=== PATIENT | female | born 1975 | race Caucasian/White ===

== ENCOUNTER 2018-12-21 23:07 | Emergency (ER) | payer OTHER, SELFPAY ==
[2018-12-21 23:09] VITALS: BP 139/87; PULSE 118; RESP 18; TEMP 36.8; O2SAT 100; BMI 24.5
[2018-12-21 23:31] LABS: Bacteria 0 SEEN /hpf (None Seen); Mucous, Urine 0 SEEN /hpf (<or=2+); Red Blood Cells-Urine 0 SEEN /hpf (0-5)
[2018-12-21 23:39] LABS: Color, Urine Straw (Yellow); Glucose, Dipstick Normal (Normal); Ketone-Dipstick Negative (Negative); Leukocyte Esterase-Dipstick Negative /ul (Negative); Nitrite-Dipstick Negative (Negative); Occult Blood-Urine Negative /ul (Negative); Protein-Dipstick Negative (Negative); Specific Gravity, Urine 1.005 (1.002-1.030); Urine Bilirubin Dipstick Negative (Negative); Urine Clarity Clear (Clear); Urine Urobilinogen Normal (Normal)
[2018-12-21 23:46] LABS: Squamous Epithelial Cells - UA 0-5 SEEN /hpf (5-10); White Blood Cells 0-5 SEEN /hpf (0-5)
[2018-12-21 23:47] LABS: Transitional Epithelial - Ur 0-5 SEEN /hpf (0-5)
--- NOTE | 2018-12-21 23:57 | EKG12_ITS ---
Test Reason : WEAKNESS/SYNCOPE Blood Pressure : / mmHG Vent. Rate : 096 BPM Atrial Rate : 096 BPM P-R Int : 166 ms QRS Dur : 092 ms QT Int : 370 ms P-R-T Axes : 031 020 007 degrees QTc Int : 467 ms Normal sinus rhythm Normal ECG Confirmed by NAZARIO STOVER, DIAN ([id number]), state editor CHERY HARMON ([id number]) on 12/24/2018 11:16:23 AM Referred By: KAZ Confirmed By:DIAN LANGE MD
--- NOTE | 2018-12-22 00:01 | RAD_ITS ---
HISTORY: DIZZINESS TODAY, ALSO HAD EPISODE SEVERAL WEEKS PRIOR, TACHYCARDIA EXAM:XR Chest 1 View: COMPARISON: None FINDINGS: EKG leads in place. Normal heart size. Lung volumes appear normal. No vascular congestion, pleural effusion, or acute pulmonary infiltration. No pneumothorax. The bony thorax appears intact. RAD/Chest 1 View (Portable) IMPRESSION: No acute cardiopulmonary disease. at 0037 Reported and signed by: Pollo Manning MD Electronically Signed: Pollo Manning, at 0:36 EDT Tel , Service support ,
--- NOTE | 2018-12-22 00:05 | ED.RN ---
NO OLD EKGS IN MUSE
[2018-12-22] MEDS: 0.9% Normal Saline 1,000 ML 150 ML IV (00:12)
[2018-12-22 01:04] LABS: Absolute Lymphocyte Count 1.47 X10^3/ul (0.83-4.51); Basophil# 0.02 X10^3/uL; Basophil% 0.3 % (0-1); Eosinophil# 0.08 X10^3/uL; Eosinophils% 1.1 % (0-5); Hematocrit 38.3 % (37-47); Hemoglobin 12.3 g/dl (12.0-15.0); Lymphocyte # 1.47 X10^3/ul (4.0); Lymphocyte % 20.6 % (19-41); Mean Corp Hgb Conc 32.1 g/gl (32-36); Mean Corpuscular Hgb 28.3 pg (27.0-32.0); Mean Platelet Vol. 10.3 fl (6.2-12.0); Monocyte# 0.51 X10^3/uL; Monocyte% 7.1 % (0-10); Neutrophil # 5.04 X10^3/uL (2.7-7.7); Neutrophil % 70.6 % (47-70); Platelet Count 201 K/mm3 (150-450); RBC Distribution Width CV 13.4 % (11.6-14.6); RBC Distribution Width SD 42.6 fl (35.1-43.9); Red Blood Count 4.35 M/mm3 (4.2-5.4); White Blood Count 7.1 K/mm3 (4.4-11.0)
[2018-12-22 01:11] LABS: POSITIVE COUNT NO; POSITIVE DIFFERENTIAL NO; POSITIVE MORPHOLOGY NO
[2018-12-22 01:16] LABS: D-Dimer Quantitative (DVT/PE) < 0.27 FEU/ug/m (0.27-0.49)
[2018-12-22 01:22] LABS: Anion Gap 5 (5-15); BUN 16 mg/dL (7-18); BUN/Creat Ratio 25.1 RATIO (10-20); Calcium,Total 8.6 mg/dL (8.5-10.1); Chloride 109 mmol/L (98-107); Creatinine, Serum 0.64 mg/dL (0.55-1.02); EST Glomerular Filtration Rate 107 mL/min (>60); Est Glom Filt Rate - Afr Amer 130 mL/min (>60); Estimated Creatinine Clearance 84.65 ml/min; Glucose 114 mg/dL (74-106); Potassium 3.7 mmol/L (3.5-5.1); Sodium Level 140 mmol/L (136-145)
[2018-12-22 01:26] LABS: Pregnancy, Serum, hCG Quali. NEGATIVE Negative (0-9 Nonpreg)
--- NOTE | 2018-12-22 01:34 | ED.DCSUM_ITS ---
- ER Visit Summary Date of Service: 12/22/18 Chief Complaint: [Dizziness and and not feeling well] History of Present Illness: The patient is a 43 F [presents the emergency department with complaint of presyncopal episode and dizziness. Patient states that she was sitting and reading a newspaper around 10:15 PM when she began feeling like she might pass out and she got hot. She states that everything kind of went black for a second or 2. Patient did not actually have a syncopal episode. She checked her heart rate because she felt like her heart was racing and it was in the 130s. Patient began feeling shaky afterwards. Currently she just feels fatigued. She denies recent illness. Patient states she had a similar episode about a week ago. About 13 years ago she wore a Holter monitor and she was told she had PACs. She denies recent travel or surgery.] Physical Examination: [HEENT-PERRLA, EOMI. Cranial nerves II through XII grossly intact. TMs clear. Mucous membranes moist. No adenopathy. Cardiovascular-regular rate and rhythm without murmur or ectopy Lungs-clear to auscultation, chest wall stable without crepitus or subcu emphysema Abdomen-normoactive bowel sounds, soft, nontender, no rebound or rigidity, no peritoneal signs. Extremities-intact ?4, normal range of motion, normal pulses, atraumatic] Test Results: [EKG obtained on arrival showed a sinus rhythm with a ventricular rate of 96 bpm with no acute I segment changes. CBC with differential was normal. Chemistries were normal. Urinalysis was normal. Troponin was less than 0.015. D-dimer was normal less than 0.27. Chest x-ray was unremarkable.] Emergency Department Course and Treatment: [] Treatment Plan: [I had a discussion with patient about possibly placing a Holter monitor however patient refused at this time and states that if her symptoms persist or return and she would be willing to do so. At this point the etiology of her symptoms is unclear although I suspect she may have had a vasovagal episode.] Disposition: [Discharged home in stable condition] Impression: [Near syncope-etiology uncertain] This note was generated with [employer] software. It may contain incorrect words, spelling, and punctuation that were not noted in review of the chart prior to signing ED Disposition - Plan for ED Patient: Referrals: Debbie Bautista PA-C [Primary Care Provider] -
--- NOTE | 2018-12-22 01:34 | ED.DEP ---
ED Disposition - Plan for ED Patient: Instructions: ED Near Syncope Unkn Referrals: Debbie Bautista PA-C [Primary Care Provider] - 3-5 Days
[2018-12-22 01:59] VITALS: BP 114/77; PULSE 81; PULSE 85; RESP 20; RESP 21; O2SAT 98
== END 2018-12-22 02:01 | disposition home or self-care (01) ==
LOC: ED 12-22 00:26
PROVIDERS: Emergency Provider Emergency Medicine; Family Provider Family Medicine; PCP Family Medicine
DX: R55 Syncope and collapse (principal)
CPT/HCPCS: 71045; 80048; 81001; 84484; 84703; 85025; 85379; 93005; 96360; 96361; 99285; A4216

== ENCOUNTER 2019-04-30 19:22 | Emergency (ER) | payer OTHER, SELFPAY ==
[2019-04-30 19:24] VITALS: BP 134/90; PULSE 104; PULSE 98; RESP 16; RESP 17; TEMP 36.2; O2SAT 96; O2SAT 97; BMI 25.9
--- NOTE | 2019-04-30 20:16 | EKG12_ITS ---
Test Reason : DYSRHYTHMIA Blood Pressure : / mmHG Vent. Rate : 085 BPM Atrial Rate : 085 BPM P-R Int : 162 ms QRS Dur : 090 ms QT Int : 374 ms P-R-T Axes : 022 007 002 degrees QTc Int : 445 ms Normal sinus rhythm Normal ECG Confirmed by DELFINA STOVER, JAMILAH ([id number]), editor book CHERY AHRMON ([id number]) on 05/02/2019 1:34:40 PM Referred By: JENN Confirmed By:JAMILAH MATHIS MD
--- NOTE | 2019-04-30 20:50 | ED.VIS.GEN ---
History of Present Illness Chief Complaint: Ear Problem Detail of Chief Complaint: Numerous symptoms Informant: Patient, Significant Other Onset: - - Patient is dependent on symptom please read narrative Context: - - Is read narrative Timing: - - Please read narrative Quality: Numbness left side of face and left ear pain. Also both hands Location: Face and hands Current Severity: Mild Maximum Severity: Moderate Worsened by: Hand pain and numbness worse at night Relieved by: Relieved with shaking Associated Symptoms: Please read narrative Narrative: Patient is a 43-year-old woman with no sniffing past medical history presents with numerous symptoms. She presented today because of left-sided facial numbness and left ear pain. She has not noted a rash. She denies headache. She denies change in vision, change in hearing or ringing or ears. She denies rhinorrhea, congestion postnasal drainage. Denies sore throat. Denies change in voice. Denies difficulty swallowing or breathing. She denies cardiac arrest or symptoms. She does report intermittent nausea. She reports dizziness. She cannot distinguish between whether it is spinning or lightheaded or both. She presently has no vertiginous symptoms. Movement of her head does not exacerbate her dizziness. She also complains of numbness in the distribution of the median nerve right and left side. She also reported episode of passing out last week. She was washing her hair. Incident occurred April 24. She states she was washing her hair felt like she was going to pass out and believes she was out for a second or 2. There is no incontinence. She did not bite her tongue. She denied headache. Prior similar symptoms: No Recent Illness/Hospitalization: No - Past Medical History (1) No significant past medical history Status: Acute Past Medical History - Allergies and Home Meds Allergies/Adverse Reactions: Allergies EXTRA STRENGTH TYLENOL Allergy (Uncoded 04/30/19 19:23) Angioedema Primary Care Physician: Debbie Bautista PA-C [Primary Care Provider] - Prior records reviewed: No Past Medical History: None Surgical History: no surgical history Lives: Spouse/ Significant Other Smoking Status: Never smoker Review of Systems General: Denies: Chills, Fever, Malaise, Subjective, Sweats Eyes: Denies: Visual changes - bilaterally, Blurred Vision - bilaterally, Diplopia ENT: Reports: Left ear pain. Denies: Rhinorrhea, Sore throat Cardiovascular: Denies: Chest pain, Palpitations Respiratory: Denies: Dyspnea, Cough, Dyspnea on exertion Gastrointestinal: Denies: Abdominal pain, Nausea, Vomiting, Diarrhea, Melena, Hematochezia Genitourinary: Denies: Dysuria, Hematuria, Frequency Musculoskeletal: Denies: Back pain, Extremity Pain Skin: Denies: Rash, Wounds Neurological: Reports: Parasthesia. Denies: Headache, Weakness, Numbness Endocrine: Denies: Polyuria, Polydipsia Hematologic: Denies: Easy bruising, Easy bleeding Physical Exam Vital Signs/Narrative: Vital Signs Temp Pulse Resp BP Pulse Ox 04/30/19 19:24 97.1 F L 98 17 134/90 H 96 Inital Vital Signs reviewed: Yes General: Well nourished, Well developed, No Acute Distress Head: Normocephalic, Atraumatic. Negative for: Trauma Eyes: Perrl, EOMI. Negative for: Pale conjunctiva, Scleral icterus, - ENT: Moist mucous membranes, No rhinorrhea, TM's clear, - - There are no lesions to suggest Waterfall Hyde syndrome Neck: Supple, Nontender, No lymphadenopathy, No JVD, - Cardiovascular: Regular rate, Regular rhythm, No murmurs, Normal S1, Normal S2 Respiratory: No distress, CTA bilaterally, Chest nontender Abdomen: Soft, Nontender, Nondistended, Normal bowel sounds Rectal: Deferred Back: Nontender, Normal Inspection Extremities: Nontender, No edema, - - A Tinel sign. Positive Phalen sign. Skin: Normal color, No rash. Negative for: Cyanosis, Diaphoresis, Jaundice, No Trauma Neurological: Alert, Oriented x3, Cranial nerves II-XII grossly intact, Normal Strength, Normal Sensation, Normal DTR, - - Patient reports increased sensitivity over the second division of the trigeminal nerve Psychological: Normal affect, Normal Mood Diagnostic/Tx/Re-eval Laboratory Results 04/30/19 04/30/19 20:30 20:30 WBC 7.1 RBC 4.53 Hgb 13.2 Hct 39.6 MCV 87.4 MCH 29.1 MCHC 33.3 RDW Std Deviation 42.3 RDW Coeff of Leonel 13.2 Plt Count 198 MPV 10.4 Immature Gran % (Auto) 0.300 Neut % (Auto) 62.8 Lymph % (Auto) 26.8 [place] % (Auto) 8.0 Eos % (Auto) 1.8 Baso % (Auto) 0.3 Absolute Neuts (auto) 4.5 Absolute Lymphs (auto) 1.90 Nucleated RBC % 0 Sodium 137 Potassium 5.1 Chloride 106 Carbon Dioxide 28.0 Anion Gap 3 L BUN 9 Creatinine 0.60 Estim Creat Clear Calc 85.94 Est GFR (MDRD) Af Amer 138 Est GFR (MDRD) Non-Af 114 BUN/Creatinine Ratio 14.9 Glucose 92 Calcium 9.1 Results of blood test are unremarkable. - EKG Initial EKG Interpretation: Sinus Rhythm - Ventricular rate is 85. VT interval is 160 ms. Durations 90 ms. QT duration is 374 ms. [place] is normal. The EKG is completely normal. - Medical Decision Making Suspect patient's tingling in her fingers with pain at night for the past 2 months is secondary to carpal tunnel syndrome. The facial numbness and hypersensitivity may represent shingles. Presently there are no lesions. Because she had a single episode EKG was obtained. Also obtain baseline blood work to assess for electrolyte abnormality anemia etc. Based on patient's history positive Phalen sign concern patient has bilateral carpal tunnel syndrome. Will treat with NSAIDs and no contraindication and cock-up splint to be worn at night right and left. With regard to the hypersensitivity and ear pain one needs to consider herpes varicella-zoster and specifically Waterfall Hyde syndrome. Since there is no lesions no treatment was initiated. Patient was informed if she develops a rash she is to return immediately. ED Disposition - Plan for ED Patient: Disposition: Home or Assisted Living Diagnosis: Carpal tunnel syndrome on both sides, Left facial numbness, Acute pain of left ear Instructions: Carpal Tunnel Syndrome Prevention Tips Prescriptions: Naproxen [Naprosyn] 500 mg PO BID #20 tab Prescription Printed Referrals: Debbie Bautista PA-C [Primary Care Provider] - 1 Week Additional Instructions: Wear splints to bed. Take Naprosyn as instructed. You If you develop a facial rash return to the emergency department as soon as possible
[2019-04-30 20:52] LABS: Absolute Neutrophil Count 4.5 X10^3/uL (2.0-7.7); Basophil# 0.02 X10^3/uL; Basophil% 0.3 % (0-1); Eosinophil# 0.13 X10^3/uL; Eosinophils% 1.8 % (0-5); Hematocrit 39.6 % (37-47); Hemoglobin 13.2 g/dL (12.0-15.0); Lymphocyte % 26.8 % (19-41); Mean Corp Hgb Conc 33.3 g/dL (32-36); Mean Corpuscular Hgb 29.1 pg (27.0-32.0); Mean Corpuscular Volume 87.4 fL (81-99); Mean Platelet Vol. 10.4 fl (6.2-12.0); Monocyte# 0.57 X10^3/uL; NRBC Flagged by Analyzer 0 % (0-5); Neutrophil # 4.46 X10^3/uL (2.7-7.7); Neutrophil % 62.8 % (47-70); Platelet Count 198 K/mm3 (150-450); RBC Distribution Width CV 13.2 % (11.6-14.6); RBC Distribution Width SD 42.3 fl (35.1-43.9); Red Blood Count 4.53 M/mm3 (4.2-5.4); White Blood Count 7.1 K/mm3 (4.4-11.0)
[2019-04-30 21:23] VITALS: PULSE 90; RESP 18; O2SAT 96
[2019-04-30 21:23] LABS: Anion Gap 3 (5-15); BUN 9 mg/dL (7-18); BUN/Creat Ratio 14.9 RATIO (10-20); Calcium,Total 9.1 mg/dL (8.5-10.1); Chloride 106 mmol/L (98-107); EST Glomerular Filtration Rate 114 mL/min (>60); Est Glom Filt Rate - Afr Amer 138 mL/min (>60); Estimated Creatinine Clearance 85.94 ml/min; Glucose 92 mg/dL (74-106); Potassium 5.1 mmol/L (3.5-5.1); Sodium Level 137 mmol/L (136-145)
[2019-04-30 22:15] VITALS: BP 114/82; PULSE 83; RESP 16; O2SAT 97
--- NOTE | 2019-04-30 22:17 | NURSING ---
PT REFUSED TO HAVE THE VELCRO SPLINT APPLIED TO BOTH WRIST. PT SAID DOES NOT WANT TO SPEND THE MONEY. OFFERED TO TALK TO MD BUT PT SAID NO WE HAVE DONE ENOUGH AND LEFT
== END 2019-04-30 22:18 | disposition home or self-care (01) ==
PROVIDERS: Emergency Provider Emergency Medicine; Family Provider Family Medicine; PCP Family Medicine
DX: G56.03 Carpal tunnel syndrome, bilateral upper limbs (principal); R20.0 Anesthesia of skin; H92.02 Otalgia, left ear; R11.0 Nausea; R42 Dizziness and giddiness
CPT/HCPCS: 80048; 85025; 93005; 99285; A4216

== ENCOUNTER → 2020-10-12 16:36 | Outpatient (CLI) | payer OTHER, SELFPAY ==
--- NOTE | 2020-10-12 16:40 | RAD_ITS ---
HISTORY: spinal stenosis. chronic low back pain. COMPARISON: None FINDINGS: # of images incl. paperwork: 4 XR Spine Lumbar Min 4 Views: Lumbar vertebral bodies are normal in height. Lumbar disc spaces are well maintained, except at the L5-S1 level with there is some loss of disc height, endplate sclerosis, and enthesophytes. A gentle dextroscoliosis has apex at the L3 level.. No acute lumbar spine fracture or subluxation. RAD/L/S Spine Min 4 Views IMPRESSION: No acute lumbar spine fracture or subluxation. Isolated degenerative disc disease at the L5-S1 level at 0401 Reported and signed by: Yves Hamm MD Electronically Signed: Yves Hamm MD at 4:00 EST Tel , Service support ,
== END ==
PROVIDERS: PCP Family Medicine; Referring Provider Anesthesiology Pain Medicine; Visit Provider Anesthesiology Pain Medicine
DX: M48.00 Spinal stenosis, site unspecified (principal)
CPT/HCPCS: 72110